=== PATIENT | female | born 1990 | race Caucasian/White ===

== ENCOUNTER 2017-01-23 12:58 | Emergency (ER) | payer OTHER ==
[2017-01-23 13:13] VITALS: BP 114/77; PULSE 72; RESP 18; TEMP 98.3; O2SAT 100
[2017-01-23] MEDS ORDERED: DiphenhydrAMINE 50 mg/ml Inj IM STA (13:41)
[2017-01-23] MEDS ORDERED: DiphenhydrAMINE 50 mg/ml Inj ONE (13:55)
--- NOTE | 2017-01-23 14:46 | C.PDOC ---
History Of Present Illness Patient is a 26 y/o female that presents to the ED for evaluation of generalized itchy rash for the past 1 week. Patient reports being seen by PMD and was given prescriptions of Hydroxyzine and Medrol dose pack. Patient states rash had cleared, but returned again. Otherwise, patient denies trouble breathing, difficulty swallowing, voice change, swelling, or any other associated symptoms at this time. Chief Complaint (Nursing): Abnormal Skin Integrity History Per: Patient History/Exam Limitations: no limitations Onset/Duration Of Symptoms: Days (1 week) Current Symptoms Are (Timing): Still Present Severity: None Pain Scale Rating Of: 0 Recent travel outside of the [place]: No Additional History Per: Patient Past Medical History Reviewed: Historical Data, Nursing Documentation, Vital Signs Vital Signs: Last Vital Signs Temp 98.3 F 01/23/17 13:11 Pulse 72 01/23/17 13:11 Resp 18 01/23/17 13:11 BP 114/77 01/23/17 13:11 Pulse Ox 100 01/23/17 17:07 Family History: States: Unknown Family Hx - Social History Hx Tobacco Use: No Hx Alcohol Use: No Hx Substance Use: No - Immunization History Hx Influenza Vaccination: No Review Of Systems Except As Marked, All Systems Reviewed And Found Negative. Constitutional: Negative for: Fever, Chills ENT: Negative for: Throat Pain Respiratory: Negative for: Shortness of Breath Skin: Positive for: Rash Physical Exam - Physical Exam Appears: Non-toxic, No Acute Distress Skin: Warm, Dry, Rash (diffuse generalized urticaria) Head: Atraumatic, Normacephalic Respiratory: Normal Breath Sounds, No Rales, No Rhonchi, No Wheezing Neurological/Psych: Oriented x3, Normal Speech, Normal Cognition ED Course And Treatment O2 Sat by Pulse Oximetry: 100 (on RA) Pulse Ox Interpretation: Normal Progress Note: Patient was treated with Pepcid PO, Prednisone PO, and Benadryl IM in th ER. On reassessment, patient is resting comfortably, with no acute distress. Patient reports improvement of symptoms. Patient is being discharged home, and is instructed to follow up with PMD. Disposition - Disposition Referrals: Tammy Worthington MD [Staff Provider] - Disposition: HOME/ ROUTINE Disposition Time: 14:44 Condition: STABLE Additional Instructions: Follow up with your PMD within 1-2 days. Return to ED if feel worse. Prescriptions: DiphenhydrAMINE [Benadryl] 25 mg PO .Q4-6 H #30 cap Famotidine [Pepcid] 20 mg PO BID #20 tab predniSONE [predniSONE Tab] 2 tab PO DAILY #8 tab Instructions: Urticaria (ED) - Clinical Impression Clinical Impression: Urticaria - PA / [employer]ICATING [employer]INE [employer]ER / Resident Statement MD/DO has reviewed & agrees with the documentation as recorded. - Scribe Statement The provider has reviewed the documentation as recorded by the Matyibgilbert Kirkpatrick All medical record entries made by the Geovanna were at my direction and personally dictated by me. I have reviewed the chart and agree that the record accurately reflects my personal performance of the history, physical exam, medical decision making, and the department course for this patient. I have also personally directed, reviewed, and agree with the discharge instructions and disposition.
== END 2017-01-23 14:48 | disposition home or self-care (01) ==
LOC: C.ER 12:58
DX: L50.9 Urticaria, unspecified (principal)
CPT/HCPCS: 96372; 99284; J1200